=== PATIENT | female | born 1995 | race Caucasian/White ===

== ENCOUNTER → 2023-09-04 12:52 | Outpatient (REF) | payer OTHER, SELFPAY | LOC: HWRAD 12:52 | PROVIDERS: ATTENDING PHYSICIAN Nurse Practitioner Women's Health; FAMILY PHYSICIAN Family Medicine | DX: O36.60X0 Maternal care for excessive fetal growth, unspecified trimester, not applicable or unspecified (principal) | CPT/HCPCS: 76801 ==

== ENCOUNTER → 2023-11-11 10:45 | Outpatient (REF) | payer OTHER, SELFPAY | LOC: PNTC 10:45 | PROVIDERS: ATTENDING PHYSICIAN Obstetrics & Gynecology | DX: O09.529 Supervision of elderly multigravida, unspecified trimester (principal); O09.30 Supervision of pregnancy with insufficient antenatal care, unspecified trimester; Z34.80 Encounter for supervision of other normal pregnancy, unspecified trimester | CPT/HCPCS: 76805 ==